=== PATIENT | female | born 1955 | race Caucasian/White ===

== ENCOUNTER → 2020-04-02 | Outpatient (CLI) | payer OTHER | LOC: RAD 13:34 | PROVIDERS: ATTEND Preventive Medicine Public Health & General Preventive Medicine | DX: Z12.31 Encounter for screening mammogram for malignant neoplasm of breast (principal) ==

== ENCOUNTER → 2020-07-27 | Outpatient (CLI) | payer OTHER ==
[~2020-07-27] MED LIST: ASA81BEC PO; COZAAR 50 MG TA50 M1 PO; ESTRACE42.5 GM VAG; MAGNESIUM400 M1 PO; OMEGA-3 FISH1200 MG PO; TOPROL XL25 MG PO; VITAMIN D3125 MC2 PO
== END ==
LOC: SJCVC 09:18 → SJCVCIMAG 09:18
PROVIDERS: ATTEND Internal Medicine
DX: I25.9 Chronic ischemic heart disease, unspecified (principal); I11.9 Hypertensive heart disease without heart failure; E78.5 Hyperlipidemia, unspecified; Z79.899 Other long term (current) drug therapy

== ENCOUNTER 2020-07-31 09:18 | Observation (INO) | payer OTHER ==
[2020-07-31] VITALS (10 sets, daily range): BP systolic 129–154; BP diastolic 7–84
[~2020-07-31] VITALS: Ht 170.2 cm; Wt 68.0 kg
[2020-07-31] MEDS ORDERED: VITAMIN D3125 MC2 PO (09:56)
[2020-07-31 09:58] LABS: HEMATOCRIT 43.4 % (37.0-47.0); HEMOGLOBIN 14.5 gm/dL (12.0-15.0); MCH 30.1 pg (26.0-34.0); MCHC 33.4 g/dL (28.0-37.0); MCV 90.1 fL (80.0-100.0); RBC 4.81 mil/uL (4.20-5.00); RDW 12.8 % (10.5-14.5); WBC 5.7 thou/uL (4.0-11.0)
[2020-07-31] MEDS ORDERED: COZAAR 50 MG TA50 M1 PO (09:58)
[2020-07-31] MEDS ORDERED: ESTRACE42.5 GM VAG (09:58)
[2020-07-31] MEDS ORDERED: MAGNESIUM400 M1 PO (09:58)
[2020-07-31] MEDS ORDERED: TOPROL XL25 MG PO (09:59)
[2020-07-31] MEDS ORDERED: OMEGA-3 FISH1200 MG PO (09:59)
[2020-07-31] MEDS ORDERED: ASA81BEC PO (10:00)
[2020-07-31 10:06] LABS: CALCIUM 8.9 mg/dL (8.5-10.1); CREATININE 0.9 mg/dL (0.6-1.0); POTASSIUM 4.1 mmol/L (3.5-5.1)
--- NOTE | 2020-07-31 10:48 | EKG ---
[facility] [place] [address] ELECTROCARDIOGRAM REPORT Name: SILVERIOGAYLE Room #: [facility] [employer].#: [id number] Admission: 07/31/20 Attend Phys: Kyler Roque Discharge: Date of : 55 Report #: [id number] THIS REPORT FOR: cc: Saroj Vasquez MD, Andrea C. MD Lammoglia, Francisco J. MD THIS REPORT FOR: //name// [facility] Test Date: 2020-07-31 Test Time: 10:24:51 Pat Name: GAYLE SILVERIO Department: Room: Gender: Radiologic Therapist: CHRISTIANE : 1955 Requested By: Kyler Roque Order Number: [id number] MD: Kyler Roque Measurements Intervals [place] Rate: 61 P: 66 OH: 151 QRS: 37 QRSD: 93 T: 74 QT: 441 QTc: 445 Interpretive Statements Sinus rhythm Anterior infarct, age indeterminate LAE NS ST/T wave changes consider ischemia with T wave inversions No previous ECG available for comparison Electronically Signed On 07-31-2020 10:48:40 SHIP'S SURVEYOR by Kyler Roque [email or web address] <ELECTRONICALLY SIGNED> By: Kyler Roque MD 07/31/20 1048 1024 1024 Kyler Roque MD /EPI
--- NOTE | 2020-07-31 16:57 | NUR ---
PT ADMITED FROM INCOME TAX ADMINISTRATOR. ADMISSION HX AND ASSESSMENT COMPLETED. VSS. DENIED HAVING PAIN OR DISCOMFORT. RIGHT GROIN INCISION C/D/I. NO HEMATOMA NOTED. SR ON TELE. NO CONCERNS AT THIS TIME.
[2020-08-01 04:00] VITALS: BP 128/69
--- NOTE | 2020-08-01 05:35 | NUR ---
PT IS ALERT AND ORIENTED X4. LUNGS ARE CLEAR. UP AD [place] TO BATHROOM. SHOWERING SUPPLIES PLACED IN BATHROOM FOR THIS AM. RIGHT GROIN SITE IS DRY AND INTACT NO BLEEDING NOTED OR HEMATOMA, WILL PLAN FOR DISCHARGE THIS AM PER PHYSICAN. ONGOING NURSING CARE
[2020-08-01] MEDS ORDERED: EFFIENT10 MG PO (08:07)
[2020-08-01] MEDS ORDERED: ASPIRIN325 PO (08:07)
[2020-08-01 08:43] VITALS: BP 148/90
[2020-08-01 08:51] LABS: CHOLESTEROL 330 mg/dL (<200); HDL CHOLESTEROL 77 mg/dL (>40); LDL CHOLESTEROL 226 mg/dL (<100); TC:HDL 4.3 Ratio (Not establshd); TRIGLYCERIDE 139 mg/dL (<150); VLDL 28 mg/dL (<40)
[2020-08-01 12:43] VITALS: BP 136/86
[2020-08-01 13:03] VITALS: BP 136/86
--- NOTE | 2020-08-01 14:13 | NUR ---
ASSESSMENT CHARTED PT ALERT AND ORIENTED. VSS. DENIED HAVINF PAIN OR DISCOMFORT. RIGHT GROIN INCISION C/D/I. NO HEMATOMA NOTED. ORDERS GIVEN TO DISCHARGE PT TO HOME. DISCHARGE ORDERS GIVEN TO PT. PT VERBERLISED UNDERSTANDING.
--- NOTE | 2020-08-08 10:36 | CATHLAB ---
[facility] [address] [place] [address] INVASIVE PROCEDURE REPORT Name: GAYLE SILVERIO Room #: 209-P [facility] Elio Dykes#: [id number] Admission: 07/31/20 Attend Phys: Kyler Roque Discharge: 08/01/20 Date of : 55 Report #: [id number] THIS REPORT FOR: cc: Saroj Vasquez MD, Andrea C. MD Lammoglia, Francisco J. MD ~ APPROVED REPORT Study performed: 07/31/2020 10:37:00 Patient Details Patient Status: Out-Patient Room #: The patient is a 65 year-old female Event Personnel Kyler Roque Infection Prevention Coordinator, Johanny QuirogaR, VETERINARY SURGERY TECHNOLOGIST Monitor, Kirsten Preston RN RN, Stacie Crockett Scrmaximino Procedures Performed Art Access - R femoral artery* Left Heart Cath w/or w/o Coronaries [id number] [facility] Place w/wo Plasty Single LAD [id number] 04221 Initial Mod Sed Same Phys/QHP Gr5y 666097 72689 Mod Sed Same Phys/QHP Ea 610392 Hemostasis w/ Mynx, supervision conscious sedation Indication Positive stress test, Chest pain Procedure Narrative The Right Groin^ was infiltrated with 1% Lidocaine subcutaneous anesthesia. A PINNACLE 4FR Sheath #[id number] sheath was inserted into the RFA^. Coronary angiography was performed using coronary diagnostic catheters. The right coronary system was accessed and visualized with a JR4 catheter. The left coronary system was accessed and visualized with a JL4 catheter. The left ventricle was accessed and visualized with a JR4 catheter. Left ventricular/Aortic Valve gradient assessed via catheter pullback. Closure device was deployed with a 6 Fr MynxGrip 6/7F. The patient tolerated the procedure well and there were no complications associated with the procedure. There was no hematoma. Intraoperative Conscious Sedation Sedation start time: 11:00 Case end Time: [facility] [place] [address] INVASIVE PROCEDURE REPORT Name: GAYLE SILVERIO Room #: 209-P [facility] IN ..#: [id number] Admission: 07/31/20 Attend Phys: Kyler Peguero Discharge: 08/01/20 Date of : 55 Report #: [id number] 11:59 Versed 2 mg Fluoro Time: 13.10 minutes Dose: DAP 8952.30 cGycm2 1461 mGy Contrast Type and Amount: Omnipaque 140 ml Coronary Angiography The patient's coronary anatomy is right dominant. Diagnostic Cath Left Main Normal origin moderate caliber bifurcates left anterior descending left circumflex free of high-grade disease LAD Moderate caliber type III vessel which courses in the anterior interventricular sulcus giving rise to diagonal septal branches. In the distal portion of the proximal LAD there is a subtotal 90+ percent lesion which extends approximately 12 mm into the mid LAD. The first diagonal branch also originates within this region with out an ostial lesion. The vessel reconstitutes continues in the anterior interventricular sulcus free of high-grade lesions. Diagonal 1 Moderate caliber vessel coursing on the anterolateral wall without significant high-grade stenosis noted Circumflex Moderate large-caliber vessel courses posterior in the AV groove. Then gives rise to a first marginal branch which is moderate in size coursing on the lateral aspect heart free of significant high-grade lesions. The circumflex and continues on giving rise to 2 posterior wall branches again free of significant high-grade disease terminating a small posterior wall vessel OM1 Small caliber vessel without high-grade lesions noted OM2 Small posterior wall vessel without significant stenosis tortuous in its course OM3 Small caliber no high-grade lesions. Right Coronary Moderate caliber vessel normal origin with a significant high-grade stenosis noted. Courses posteriorly giving rise to posterior descending artery which is free of high-grade disease R PDA Moderate caliber vessel without high-grade lesions Left Ventriculography Left Ventriculography was not performed. Hemodynamics The aortic pressure is 137/79 mmHg with a mean of 101 mmHg. The left ventricular pressure is 139/10 mmHg with a mean of mmHg. The left ventricular end diastolic pressure is 23 mmHg. [facility] [address] [place] [address] INVASIVE PROCEDURE REPORT Name: GAYLE SILVERIO Room #: 209-P [facility] M.R.#: [id number] Admission: 07/31/20 Attend Phys: Kyler Peguero Discharge: 08/01/20 Date of : 55 Report #: [id number] PCI Technique After angiography was completed there is was decided to proceed with percutaneous vascularization. The 4 Yemeni system was then exchanged for a 6 Yemeni system. Utilizing a standard Julia left 4 guide was engaged to the left coronary ostium. A 0.014 wire was then advanced through the lesion distally. Attempted primary stenting was unsuccessful and the stent was removed. A 2.5 mm x 18 mm balloon was then utilized to predilate the lesion successfully. The balloon was then exchanged for the stent once again which was deployed and positioned with fluoroscopic visualization. The deployment went without complications there were no loss of side branch. Post deployment dilatation was performed to optimize of stent dilatation and. There was no loss of side branch intraluminal disruption destabilization. Patient tolerated procedure well. Effient was given postprocedure and the bivalirudin infusion was continued until completed. PCI Technique Lesion Percutaneous coronary intervention was performed on the proximal left anterior descending artery segment. A LAUNCHER 6FR JL4 #[id number] Guide Catheter was used to engage the ostium. A Luge Wire (J) .014 X 182CM #[id number] Interventional Guidewire was used to cross the lesion. BALLOON DILATION A Balloon catheter Sprinter OTW 2.5 x 15 #[id number] was inserted and inflated up to 7.00atm for 17seconds. Additional Inflation: 12.00atm for 21seconds. Additional Inflation: 12.00atm for 26seconds. STENT DEPLOYMENT A drug-eluting stent RESOLUTE MIKE OTW 2.5 X 18 #[id number] was inserted and inflated up to 12.00atm for 21seconds. POST STENT DEPLOYMENT BALLOON DILATION A Balloon catheter TREK NC OTW 2.75 X 8 was inserted and inflated up to 18.00atm for 29seconds. Additional Inflation: 22.00atm for 17seconds. Conclusion 1. Coronary disease, severe, single-vessel 2. Abnormal hemodynamics elevated low ventricular diastolic pressures 3. Successful stenting of the proximal and proximal mid LAD with a CARSON stenting dilated to approximately 3 mm in diameter Recommendations [facility] [address] [place] [address] INVASIVE PROCEDURE REPORT Name: GAYLE SILVERIO Room #: 209-P [facility] IN ..#: [id number] Admission: 07/31/20 Attend Phys: Kyler Peguero Discharge: 08/01/20 Date of : 55 Report #: [id number] Cardiac Risk Reduction Program Medical Therapy Prasugrel plus aspirin protocol initiated <ELECTRONICALLY SIGNED> By: Kyler Roque MD 08/08/20 1036 35 35 Kyler Roque MD /INF
== END 2020-08-01 14:17 | disposition home or self-care (01) ==
LOC: CATH 09:18 → 2N 13:39 → CATH 13:40 → 2N 13:40 → CATH 13:53 → 2N 08-01 14:17
PROVIDERS: Nurse Practitioner; ADMIT Internal Medicine; ATTEND Internal Medicine
DX: I25.10 Atherosclerotic heart disease of native coronary artery without angina pectoris (principal); Z79.82 Long term (current) use of aspirin; Z79.899 Other long term (current) drug therapy

== ENCOUNTER → 2021-03-29 | Outpatient (CLI) | payer OTHER ==
[~2021-03-29] MED LIST changes: +ASPIRIN325 PO; +EFFIENT10 MG PO
== END ==
LOC: NUC 09:44
PROVIDERS: ATTEND Preventive Medicine Public Health & General Preventive Medicine
DX: M85.88 Other specified disorders of bone density and structure, other site (principal); M81.0 Age-related osteoporosis without current pathological fracture